=== PATIENT | female | born 1955 | race Caucasian/White ===

== ENCOUNTER 2016-10-19 12:24 | Inpatient (IN) | payer MEDICARE, OTHER ==
[2016-10-19] VITALS (10 sets, daily range): BP systolic 119–142; BP diastolic 55–84; PULSE 52–84; RESP 16–22; TEMP 98.3–99.5; O2SAT 92–98
[~2016-10-19] VITALS: Ht 167.6 cm; Wt 114.7 kg
[2016-10-19] MEDS ORDERED: SODIUM CHLORIDE 0.9% FLUSH 5 ML FLUSH IVF PRN (12:45)
[2016-10-19] MEDS ORDERED: methylPREDNISolone SOD SUCC 125 MG/2 ML VIAL IV ONE (12:45)
[2016-10-19] MEDS: RESP: ALBUTEROL 2.5 MG/IPRATROPIUM 0.5 MG NEB (SCH) INH ×4 (12:52→23:06)
--- NOTE | 2016-10-19 12:56 | PD ---
HPI Chief Complaint: Respiratory Symptoms Time Seen by Provider: 12:39 Travel History International Travel<30 days: No Contact w/Intl Traveler<30days: No Traveled to known affect area: No History of Present Illness HPI Patient is a 60-year-old female with history of COPD, hypertension, hyperlipidemia, presents to emergency room with complaints of shortness of breath, cough, congestion. Patient reports that since Friday (past 4 days) she isn't having fevers and chills, reports that she has been coughing and has been bringing up thick sputum as well as blood-tinged sputum. Patient does report that she is on Coumadin as she has history of "heart disease" and history of a pacemaker placement. Patient reports that she went to urgent care Center prior to coming to the emergency room and was told that she had a pneumonia, reports that she was told to go directly to the emergency room for evaluation. Patient reports that she was given a shot of antibiotics, patient unsure of the name of the antibiotic. Patient also reports that she has been wheezing, reports history of smoking in the past with history of COPD, reports that she was not given any neb treatments while in the urgent care center. Patient with no sick contacts, no recent travels. Patient reports that "I feel like crap." PFSH Past Medical History Hx Anticoagulant Therapy: Yes (COUMADIN) Diabetes: Yes (TYPE 2) Past Surgical History Cardiac Surgery: Yes (pacemaker) Pacemaker: Yes Social History Tobacco Use: No Allergies-Medications (Allergen,Severity, Reaction): Coded Allergies: Sulfa (Verified Allergy, Unknown, Rash, 10/19/16) Reported Meds & Prescriptions Reported Meds & Active Scripts Active Reported Duloxetine DR (Duloxetine HCl) 60 Mg Capdr 60 Mg PO DAILY Fish Oil ([place]-3 Fatty Acids) 1,200 Mg Cap Calcium + D3 (Calcium Carbonate-Cholecalciferol) 600-200 Mg-Unit Tab 1 Tab PO BID Lisinopril 2.5 Mg Tab 2.5 Mg PO DAILY Simvastatin 40 Mg Tab 40 Mg PO HS Glipizide 10 Mg Tab 10 Mg PO BIDAC Take 30 minutes before a meal Bupropion HCl 100 Mg Tab 100 Mg PO BID Carvedilol 6.25 Mg Tab 6.25 Mg PO BID Spironolactone 25 Mg Tab 12.5 Mg PO DAILY Warfarin 7.5 Mg Tab 7.5 Mg PO DAILY Omeprazole 20 Mg Tab 20 Mg PO DAILY Review of Systems General / Constitutional: Positive: Fever, Chills Eyes: No: Visual changes HENT: No: Headaches Cardiovascular: No: Chest Pain or Discomfort Respiratory: Positive: Cough, Shortness of Breath, Wheezing, Hemoptysis Gastrointestinal: No: Abdominal Pain Genitourinary: No: Dysuria Musculoskeletal: No: Pain Skin: No Rash Neurologic: No: Weakness Psychiatric: No: Depression Endocrine: No: Polydipsia Hematologic/Lymphatic: No: Easy Bruising Physical Exam Narrative GENERAL: No acute distress, nontoxic SKIN: Warm and dry. HEAD: Atraumatic. Normocephalic. EYES: Pupils equal and round. No scleral icterus. No injection or drainage. ENT: No nasal bleeding or discharge. Mucous membranes pink and moist. NECK: Trachea midline. No JVD. CARDIOVASCULAR: Regular rate and rhythm. No murmur appreciated. RESPIRATORY: No accessory muscle use. Patient with scattered wheezing bilaterally GASTROINTESTINAL: Abdomen soft, non-tender, nondistended. Hepatic and splenic margins not palpable. MUSCULOSKELETAL: No obvious deformities. No clubbing. No cyanosis. No edema. NEUROLOGICAL: Awake and alert. No obvious cranial nerve deficits. Motor grossly within normal limits. Normal speech. PSYCHIATRIC: Appropriate mood and affect; insight and judgment normal. Data Data Last Documented VS Vital Signs Date Time Temp Pulse Resp B/P Pulse Ox O2 Delivery O2 Flow Rate FiO2 10/19/16 13:13 97 10/19/16 12:55 21 10/19/16 12:31 99.0 60 16 119/55 Orders Electrocardiogram (10/19/16 12:44) Complete Blood Count With Diff (10/19/16 12:44) Comprehensive Metabolic Panel (10/19/16 12:44) Influenzae A/B Antigen (10/19/16 12:44) Urinalysis - C+S If Indicated (10/19/16 12:44) Blood Culture (10/19/16 12:44) Ecg Monitoring (10/19/16 12:44) Iv Access Insert/Monitor (10/19/16 12:44) Oximetry (10/19/16 12:44) Sodium Chloride 0.9% Flush (Ns Flush) (10/19/16 12:45) Albuterol-Ipratropium Neb (Duoneb Neb) (10/19/16 12:45) Methylprednisolone So Succ Inj (Solumedr (10/19/16 12:45) Chest, Single Ap (10/19/16 12:47) Prothrombin Time / Inr (Pt) (10/19/16 12:47) Act Partial Throm Time (Ptt) (10/19/16 12:47) Ct Pulmonary Angiogram (10/19/16 13:37) Azithromycin Inj (Zithromax Inj) (10/19/16 13:45) Albuterol Neb (Albuterol Neb) (10/19/16 15:15) Labs Laboratory Tests Test 10/19/16 10/19/16 12:50 13:50 White Blood Count 6.1 TH/MM3 Red Blood Count 3.80 MIL/MM3 Hemoglobin 11.3 GM/DL Hematocrit 34.1 % Mean Corpuscular Volume 89.6 FL Mean Corpuscular Hemoglobin 29.6 PG Mean Corpuscular Hemoglobin 33.1 % Concent Red Cell Distribution Width 12.8 % Platelet Count 182 TH/MM3 Mean Platelet Volume 7.3 FL Neutrophils (%) (Auto) 73.6 % Lymphocytes (%) (Auto) 16.2 % Monocytes (%) (Auto) 7.2 % Eosinophils (%) (Auto) 1.9 % Basophils (%) (Auto) 1.1 % Neutrophils # (Auto) 4.5 TH/MM3 Lymphocytes # (Auto) 1.0 TH/MM3 Monocytes # (Auto) 0.4 TH/MM3 Eosinophils # (Auto) 0.1 TH/MM3 Basophils # (Auto) 0.1 TH/MM3 CBC Comment DIFF FINAL Differential Comment Prothrombin Time 16.1 SEC Prothromb Time International 1.4 RATIO Ratio Activated Partial 35.2 SEC Thromboplast Time Sodium Level 138 MEQ/L Potassium Level 3.9 MEQ/L Chloride Level 101 MEQ/L Carbon Dioxide Level 27.7 MEQ/L Anion Gap 9 MEQ/L Blood Urea Nitrogen 14 MG/DL Creatinine 1.10 MG/DL Estimat Glomerular Filtration 51 ML/MIN Rate Random Glucose 102 MG/DL Calcium Level 8.9 MG/DL Total Bilirubin 0.7 MG/DL Aspartate Amino Transf 18 U/L (AST/SGOT) Alanine Aminotransferase 29 U/L (ALT/SGPT) Alkaline Phosphatase 63 U/L Total Protein 7.8 GM/DL Albumin 3.6 GM/DL Urine Collection Type CLEAN CATCH Urine Color YELLOW Urine Turbidity CLEAR Urine pH 6.5 Urine Specific [place] 1.021 Urine Protein TRACE mg/dL Urine Glucose (UA) NEG mg/dL Urine Ketones NEG mg/dL Urine Occult Blood NEG Urine Nitrite NEG Urine Bilirubin NEG Urine Leukocyte Esterase TRACE Urine WBC 0-2 /hpf Urine Squamous Epithelial 0-5 /hpf Cells Microscopic Urinalysis Comment CULT NOT INDICATED MDM Medical Decision Making Medical Screen Exam Complete: Yes Emergency Medical Condition: Yes Interpretation(s) EKG at 1304: Ventricular paced at 60bpm, qt/qtc: 494/494 Vital Signs Date Time Temp Pulse Resp B/P Pulse Ox O2 Delivery O2 Flow Rate FiO2 10/19/16 12:31 99.0 60 16 119/55 97 Differential Diagnosis Influenza, pneumonia, COPD exacerbation, PE, pneumothorax Narrative Course Patient is a 60-year-old female who presents to emergency room with complaints of increased cough, congestion and fever for the past 4 days. Patient reports that she went to an urgent care center today and was diagnosed with pneumonia, reports that she was given a shot of antibiotics and was told to go to the ER. call made to [facility] urgent care - pt was given 1gram of rocephin IM. Patient presents to emergency room with x-ray of chest from [facility]. I attempted to open disc and review xray and I was unable to pull up the xray of chest. Labs as well as x-ray chest ordered. BC ordered Patient is wheezing, will give neb treatments. patient did receive prednisone 60mg while in the urgent care today Patient with RLL infiltrate, patient has received 1 g of IM Rocephin, will give IV azithromycin. PE study ordered as patient is subtherapeutic with her INR, complaining of shortness of breath with coughing up blood - PE study ordered to evaluate for possible PE Patient with multilobar pneumonia, patient with increased consolidation throughout right upper, right middle and right lower lobes, is also patchy consolidations to the left lingula as well as to the left lower lobe Given the extent of her pneumonia, will admit to medicine service patient has been pancultured at this time. Patient did receive a dose of IM to Rocephin at urgent care yesterday, she received a dose of IV azithromycin here Wheezing has improved after multiple neb treatments as well as IV Solu-Medrol Physician Communication Physician Communication case reviewed with Dr Carranza who accepts pt to service Diagnosis Primary Impression: multilobar pneumonia Additional Impressions: COPD with exacerbation Subtherapeutic anticoagulation Admitting Information Admitting Physician Requests: Admit Shannan Arechiga DO Oct 19, 2016 12:56
[2016-10-19 13:06] LABS: AUTOMATED NEUTROPHIL # 4.5 TH/MM3 (1.8-7.7); BASOPHIL # 0.1 TH/MM3 (0-0.2); BASOPHIL % 1.1 % (0.0-2.0); EOSINOPHIL # 0.1 TH/MM3 (0-0.4); EOSINOPHIL % 1.9 % (0.0-4.0); HEMATOCRIT 34.1 % (35.0-46.0); HEMO FLAGS DIFF FINAL; LYMPH % 16.2 % (9.0-44.0); MEAN CELL VOLUME 89.6 FL (80.0-100.0); MEAN CORPUSCULAR HEMOGLOBIN 29.6 PG (27.0-34.0); MEAN CORPUSCULAR HGB CONC 33.1 % (32.0-36.0); MONO % 7.2 % (0.0-8.0); NEUT % 73.6 % (16.0-70.0); PLATELET COUNT 182 TH/MM3 (150-450); RED CELL DISTRIBUTION WIDTH 12.8 % (11.6-17.2); WHITE BLOOD COUNT 6.1 TH/MM3 (4.0-11.0)
[2016-10-19] MEDS ORDERED: OMEP20TA PO (13:08)
[2016-10-19] MEDS ORDERED: SPIR25TA PO (13:08)
[2016-10-19] MEDS ORDERED: WARF-21 PO (13:08)
[2016-10-19] MEDS ORDERED: FISH120014 (13:08)
[2016-10-19] MEDS ORDERED: DULO1CAP3 PO (13:08)
[2016-10-19] MEDS ORDERED: SIMV40TA PO (13:08)
[2016-10-19] MEDS ORDERED: LISI2.5T3 PO (13:08)
[2016-10-19] MEDS ORDERED: GLIP10TA6 PO (13:08)
[2016-10-19] MEDS ORDERED: CARV6.252 PO (13:08)
[2016-10-19] MEDS ORDERED: BUPR100T4 PO (13:08)
[2016-10-19] MEDS ORDERED: CALC600T10 PO (13:08)
[2016-10-19 13:28] LABS: CHLORIDE 101 MEQ/L (98-107); POTASSIUM 3.9 MEQ/L (3.5-5.1); SODIUM (NA) 138 MEQ/L (136-145)
--- NOTE | 2016-10-19 13:28 | RADHPO ---
EXAM DATE/TIME: 10/19/2016 13:09 [facility] COMPARISON: No previous studies available for comparison. INDICATIONS : Shortness of breath. Coughing up blood for two days. MEDICAL HISTORY : Carcinoma, breast. A-fib. SURGICAL HISTORY : Pacemaker. ENCOUNTER: Initial ACUITY: 2 days PAIN SCORE: 0/10 LOCATION: Bilateral chest FINDINGS: There is a multilead pacing/AICD device in place from the left subclavian approach. The heart size i s mildly enlarged. There is increased density at the right base. The left lung is grossly clear. N o effusion is seen. CONCLUSION: 1. Right lower lobe consolidation or atelectasis. 2. Cardiomegaly. The patient has a multilead pacing device in place. Austin Florez MD on October 19, 2016 at 13:23 Board Certified Radiologist. This report was verified electronically.
[2016-10-19 13:31] LABS: ANION GAP 9 MEQ/L (5-15); BICARBONATE 27.7 MEQ/L (21.0-32.0)
[2016-10-19 13:32] LABS: APTT (PATIENT) 35.2 SEC (24.3-30.1); BLOOD UREA NITROGEN 14 MG/DL (7-18); INTERNATIONAL NORMALIZED RATIO 1.4 RATIO; PROTHROMBIN TIME - PATIENT 16.1 SEC (9.8-11.6)
[2016-10-19 13:35] LABS: ALT (GPT) 29 U/L (10-53); AST (GOT) 18 U/L (15-37); GLOMERULAR FILTRATION RATE 51 ML/MIN (>89)
[2016-10-19 13:36] LABS: TOTAL BILIRUBIN ADULT 0.7 MG/DL (0.2-1.0)
[2016-10-19 13:38] LABS: ALKALINE PHOSPHATASE 63 U/L (45-117)
[2016-10-19] MEDS ORDERED: AZITHROMYCIN INJ 500 MG in SODIUM CHLOR 0.9% 250 ML INJ 250 ML IV ONE (13:45)
[2016-10-19 14:14] LABS: BLOOD, URINE NEG (NEG); GLUCOSE,URINE NEG (NEG); KETONE, URINE NEG (NEG); NITRITE,URINE NEG (NEG); PH, URINE 6.5 (5.0-8.5)
[2016-10-19 14:37] LABS: COMMENT (UR) CULT NOT INDICATED; CULTURE IF INDICATED CULT NOT INDICATED; METHOD OF COLLECTION CLEAN CATCH; SQUAMOUS EPITHELIAL CELL URINE 0-5 /hpf (0-5); URINE COLOR YELLOW (YELLW/STRAW); WBC, URINE 0-2 /hpf (0-5)
--- NOTE | 2016-10-19 15:14 | RADHPO ---
EXAM DATE/TIME: 10/19/2016 14:16 [facility] COMPARISON: No previous studies available for comparison. INDICATIONS : Short of breath, coughing up blood. IV CONTRAST: 70 cc Omnipaque 350 (iohexol) IV RADIATION DOSE: 21.02 CTDIvol (mGy) MEDICAL HISTORY : Cardiovascular disease. Diabetes mellitus type 2. SURGICAL HISTORY : Pacemaker. ENCOUNTER: Initial ACUITY: 1 day PAIN SCALE: 5/10 LOCATION: Chest TECHNIQUE: Volumetric scanning of the chest was performed using a pulmonary embolism protocol MIP images were reconstructed. Using automated exposure control and adjustment of the mA and/or kV acco rding to patient size, radiation dose was kept as low as reasonably achievable to obtain optimal diag nostic quality images. FINDINGS: No pulmonary embolus is identified. There are patchy areas of consolidation seen in the inferior rig ht upper lobe, throughout the right lower lobe and to a lesser degree right middle lobe. There is so me patchy consolidation at the inferolateral left lingula and at the medial upper left lower lobe. T here are lymph nodes seen in the mediastinum, in the right paratracheal, pretracheal, precarinal and subcarinal regions. The patient has a pacemaker in place. No effusion is seen. There is some event ration of the medial left hemidiaphragm. CONCLUSION: 1. No pulmonary embolus. 2. Areas of consolidation which are somewhat ground glass throughout the lungs as described above. This could represent widespread processes such as edema or infection or inflammatory change, includin g inhalational diseases. The patient does have adenopathy. Clinical correlation and close clinical followup would be recommended. Austin Florez MD on October 19, 2016 at 15:02 Board Certified Radiologist. This report was verified electronically.
[2016-10-19] MEDS ORDERED: RESP: ALBUTEROL 2.5 MG/3 ML NEB (SCH) NEB ONE (15:15)
[2016-10-19] MEDS ORDERED: RESP: ALBUTEROL 2.5 MG/IPRATROPIUM 0.5 MG NEB (PRN) INH (16:15)
[2016-10-19] MEDS ORDERED: DEXTROSE 50% IN WATER 50 ML VIAL(D50) IV PUSH PRN (16:15)
[2016-10-19] MEDS ORDERED: ONDANSETRON HCL 4 MG/2 ML VIAL IVP PRN (16:15)
[2016-10-19] MEDS ORDERED: GLUCAGON 1 MG/ML VIAL OTHER PRN (16:15)
[2016-10-19] MEDS ORDERED: NALOXONE HCL 0.4 MG/ML AMP IV PRN (16:15)
[2016-10-19] MEDS ORDERED: SODIUM CHLORIDE 0.9% FLUSH 5 ML FLUSH FLUSH PRN (16:15)
[2016-10-19] MEDS ORDERED: ACETAMINOPHEN 325 MG TAB PO PRN (16:15)
[2016-10-19] MEDS ORDERED: MAGNESIUM HYDROXIDE SUSP 30 ML CUP PO PRN (16:15)
[2016-10-19] MEDS: SODIUM CHLOR 0.9% 1000 ML INJ 1,000 ML IV SCH (17:00)
--- NOTE | 2016-10-19 17:11 | HHI.HP ---
HPI Service [facility] Hospitalists Primary Care Physician Non-Staff Admission Diagnosis Multilobar pneumonia, COPD exacerbation Diagnoses: Chief Complaint: Chest heaviness Cough SOB hemoptysis Travel History International Travel<30 Days: No Contact w/Intl Traveler <30 Da: No Traveled to Known Affected Are: No History of Present Illness This is a 60-year-old female with multiple medical problems including atrial fibrillation, previous pacemaker placement, COPD, diabetes, hypertension and history of breast cancer status post radiation who presents to [facility] ED with complaints of chest heaviness, cough and congestion 4 days. Patient reports she's been in her usual state of health until 4 days ago when she developed chest heaviness followed by cough with thick sputum production, hemoptysis and SOB. She reports associated unrecorded fever and chills. She denies any muscle aches or pains. She denies any abdominal pain, nausea or vomiting. Patient went to urgent care earlier today and was told she has pneumonia. She was treated with a cephalosporin and albuterol treatment and was then sent to the ED due to hemoptysis. She denies any ill contacts or recent travel. She denies any previous history of tuberculosis. In the ED, patient's white count is normal with 73 polys. She is afebrile. Chest x-ray shows cardiomegaly and right lower lobe consolidation. CTA revealed no evidence of PE but showed patchy areas of consolidation in all lobes of the right lung and some patchy consolidation noted in the left lobe as well. Review of Systems Constitutional: COMPLAINS OF: Fever (feeling feverish, unrecorded temperature) , Chills (x 4 days) Endocrine: DENIES: Polydipsia, Polyuria Eyes: DENIES: Blurred vision, Double Vision Ears, nose, mouth, throat: DENIES: Throat pain, Hoarseness, Ear Pain, Running Nose Respiratory: COMPLAINS OF: Cough (4 days with bloody sputum production), Wheezing, Hemoptysis, Sputum production (bloody), Shortness of breath (4 days) Cardiovascular: DENIES: Chest pain, Palpitations, Syncope, Lower Extremity Edema Gastrointestinal: DENIES: Abdominal pain, Black stools, Bloody stools, Diarrhea , Nausea, Vomiting, Difficulty Swallowing Genitourinary: DENIES: Hematuria, Dysuria Musculoskeletal: DENIES: Joint Swelling, Back pain, Neck pain Integumentary: DENIES: Pruritus, Rash Hematologic/lymphatic: DENIES: Bruising Immunologic/allergic: DENIES: Urticaria Neurologic: COMPLAINS OF: Headache (intermittant over the past 4 days, now resolved), DENIES: Localized weakness, Paresthesias, Speech Problems Psychiatric: COMPLAINS OF: Depression (chronic, unchanged), DENIES: Anxiety, Confusion Past Family Social History Past Medical History Atrial fibrillation Diabetes COPD Hypertension Dyslipidemia Depression CAD H/O valve surgery/?replacement as a child Previous pacemaker with subsequent revision/replacement due to radiation H/O CHF History of breast cancer, status post radiation and surgical resection GERD Past Surgical History H/O valve surgery/?replacement as a child Previous pacemaker with subsequent revision/replacement due to radiation History of breast cancer, status post radiation and surgical resection Reported Medications Duloxetine DR (Duloxetine HCl) 60 Mg Capdr 60 Mg PO DAILY Fish Oil ([place]-3 Fatty Acids) 1,200 Mg Cap Calcium + D3 (Calcium Carbonate-Cholecalciferol) 600-200 Mg-Unit Tab 1 Tab PO BID Lisinopril 2.5 Mg Tab 2.5 Mg PO DAILY Simvastatin 40 Mg Tab 40 Mg PO HS Glipizide 10 Mg Tab 10 Mg PO BIDAC Take 30 minutes before a meal Bupropion HCl 100 Mg Tab 100 Mg PO BID Carvedilol 6.25 Mg Tab 6.25 Mg PO BID Spironolactone 25 Mg Tab 12.5 Mg PO DAILY Warfarin 7.5 Mg Tab 7.5 Mg PO DAILY Omeprazole 20 Mg Tab 20 Mg PO DAILY Allergies: Coded Allergies: Sulfa (Verified Allergy, Unknown, Rash, 10/19/16) Active Ordered Medications Current Medications Medications (Trade) Dose Ordered Sig/Bob Route Start Time Stop Time Status Last Admin (NS Flush) 2 ml UNSCH PRN IVF 10/19/16 12:45 Family History Mother and father were killed 4 years ago in a car accident Patient has one sister who is healthy Social History Patient denies any current tobacco use but has a history of smoking in the past She denies any alcohol consumption or illicit drug use 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 A&Ox3. SKIN: Warm and dry. No rashes or lesions noted. HEAD: Atraumatic. Normocephalic. No temporal or scalp tenderness. EYES: Pupils equal round and reactive. Extraocular motions intact. No scleral icterus. No injection or drainage. ENT: Nose without bleeding, purulent drainage or septal hematoma. Throat without erythema, tonsillar hypertrophy or exudate. Uvula midline. Airway patent. NECK: Trachea midline. No lymphadenopathy. Supple, nontender, no meningeal signs. CARDIOVASCULAR: Regular rate and rhythm without murmurs, gallops, or rubs. RESPIRATORY: Decreased BS throughout with coarse BS in all lung bear. Rales. GASTROINTESTINAL: Abdomen soft, non-tender, nondistended. No hepato-splenomegaly , or palpable masses. No guarding. MUSCULOSKELETAL: Extremities without clubbing, cyanosis, or edema. No joint tenderness, effusion, or edema noted. No calf tenderness. Negative Homans sign bilaterally. NEUROLOGICAL: Awake and alert. Cranial nerves II through XII intact. Motor and sensory grossly within normal limits. Five out of 5 muscle strength in all muscle groups. Normal speech. Laboratory Laboratory Tests Test 10/19/16 10/19/16 12:50 13:50 White Blood Count 6.1 Red Blood Count 3.80 Hemoglobin 11.3 Hematocrit 34.1 Mean Corpuscular Volume 89.6 Mean Corpuscular Hemoglobin 29.6 Mean Corpuscular Hemoglobin 33.1 Concent Red Cell Distribution Width 12.8 Platelet Count 182 Mean Platelet Volume 7.3 Neutrophils (%) (Auto) 73.6 Lymphocytes (%) (Auto) 16.2 Monocytes (%) (Auto) 7.2 Eosinophils (%) (Auto) 1.9 Basophils (%) (Auto) 1.1 Neutrophils # (Auto) 4.5 Lymphocytes # (Auto) 1.0 Monocytes # (Auto) 0.4 Eosinophils # (Auto) 0.1 Basophils # (Auto) 0.1 CBC Comment DIFF FINAL Differential Comment Prothrombin Time 16.1 Prothromb Time International 1.4 Ratio Activated Partial 35.2 Thromboplast Time Sodium Level 138 Potassium Level 3.9 Chloride Level 101 Carbon Dioxide Level 27.7 Anion Gap 9 Blood Urea Nitrogen 14 Creatinine 1.10 Estimat Glomerular Filtration 51 Rate Random Glucose 102 Calcium Level 8.9 Total Bilirubin 0.7 Aspartate Amino Transf 18 (AST/SGOT) Alanine Aminotransferase 29 (ALT/SGPT) Alkaline Phosphatase 63 Total Protein 7.8 Albumin 3.6 Urine Collection Type CLEAN CATCH Urine Color YELLOW Urine Turbidity CLEAR Urine pH 6.5 Urine Specific [place] 1.021 Urine Protein TRACE Urine Glucose (UA) NEG Urine Ketones NEG Urine Occult Blood NEG Urine Nitrite NEG Urine Bilirubin NEG Urine Leukocyte Esterase TRACE Urine WBC 0-2 Urine Squamous Epithelial 0-5 Cells Microscopic Urinalysis Comment CULT NOT INDICATED Date/Time Procedure Status Source Growth 10/19/16 13:40 Aerobic Blood Culture Received Blood Peripheral Pending 10/19/16 13:40 Anaerobic Blood Culture Received Blood Peripheral Pending 10/19/16 13:00 Influenza Types A,B Antigen (JULIETH) - Final Complete Nasal Washing NEGATIVE FOR FLU A AND B ANTIGEN.... Result Diagram: 10/19/16 1250 10/19/16 1250 Assessment and Plan Assessment and Plan 60-year-old female with multiple medical problems including atrial fibrillation , previous pacemaker placement, COPD, diabetes, hypertension and history of breast cancer status post radiation who presents to [facility] ED with complaints of chest heaviness, cough and congestion 4 days. Multilobar pneumonia, Community-acquired in a patient with previous history of COPD, childhood valvular surgery with ?replacement and breast cancer s/p radiation with complaints of chest heaviness, hemoptysis and shortness of breath - Patient to be admitted with continuous cardiac monitoring - CT of the chest personally interpreted showing multi lobar pneumonia - IV antibiotics to include IV Rocephin and azithromycin - DuoNeb scheduled - Consult pulmonology - Obtain echocardiogram - Sputum culture - TB screening - supplemental oxygen - supportive measures - Follow up on blood culture results Atrial fibrillation - rate controlled - Hold warfarin for now due to hemoptysis - telemetry DONN - Mild - IV fluid - avoid nephrotoxic agents - Will continue on home ACEI at present but will hold if creatinine function worsens - A.m. labs to monitor trend Hypertension - Well-controlled at present - Resume home meds - Monitor BP Diabetes - hold home dose of glipizide until patient's appetite improves - Accuchecks - level 1 ISS Dyslipidemia - resume home simvastatin dose Depression - resume home antidepressant meds GERD - resume home PPI DVT prophylaxis - Heparin sq TID Written by Deepali Godoy PA-C acting as scribe for Dr. Carranza on 10/19/16 at 17:07. Physician Certification 2 Midnight Certification Type: Admission for Inpatient Services Order for Inpatient Services The services are ordered in accordance with Medicare regulations or non- Medicare payer requirements, as applicable. In the case of services not specified as inpatient-only, they are appropriately provided as inpatient services in accordance with the 2-midnight benchmark. Estimated LOS (days): 3 3 days is the estimated time the patient will need to remain in the hospital, assuming treatment plan goals are met and no additional complications. Post-Hospital Plan: Not yet determined Deepali Godoy Oct 19, 2016 17:11
[2016-10-19] MEDS ORDERED: PILL SPLITTER OTHER PRN (17:30)
[2016-10-19] MEDS: HEPARIN SODIUM - SQ 10,000 UNITS/ML VIAL SQ SCH ×2 (17:43→22:24)
[2016-10-19] MEDS: DOCUSATE SODIUM 100 MG CAP PO SCH ×2 (17:43→22:25)
[2016-10-19 17:58] LABS: BLOOD GAS BASE EXCESS -0.5 mmol/L (-2-2); BLOOD GAS CARBOXYHEMOGLOBIN 1.9 % (0-4); BLOOD GAS HCO3 23 mmol/L (22-26); BLOOD GAS O2 HGB SATURATION 85 % (90-100); BLOOD GAS OXYGEN CONTENT 12.8 Vol % (12.0-20.0); BLOOD GAS PCO2 34 mmHG (38-42); BLOOD GAS PO2 57 mmHG (61-120); BLOOD GAS TOTAL HGB 10.6 G/DL (12.0-16.0); CRITICAL VALUE YES; DRAW SITE RT RADIAL; FIO2 21 %; NUMBER OF ARTERIAL PUNCTURES 1; OXYGEN DEVICE ROOM AIR; TEMP CORR TO 98.6; ULNAR PULSE PRESENT
[2016-10-19 17:59] LABS: STAT NO
[2016-10-19] MEDS: cefTRIAXone INJ 2,000 MG in SODIUM CHLORIDE 0.9% INJ 100 ML IV SCH (18:00)
[2016-10-19] MEDS ORDERED: IOHEXOL 350 MG/ML 10 ML VIAL (for RAD DIAG) IV ONE (18:47)
[2016-10-19] MEDS: SODIUM CHLORIDE 0.9% FLUSH 5 ML FLUSH FLUSH SCH (21:00)
[2016-10-19] MEDS: buPROPion HCL 100 MG TAB PO SCH (21:00)
[2016-10-19 21:24] LABS: M. TUBERCULOSIS PCR NOT DETECTED (NOT DETECT)
[2016-10-19] MEDS: INSULIN ASPART SUPPLEMENTAL SCALE SQ SCH (22:25)
[2016-10-19] MEDS: CARVEDILOL 6.25 MG TAB PO SCH (22:25)
[2016-10-19] MEDS: PRAVASTATIN SOD 80 MG TAB PO SCH (22:25)
[2016-10-19] MEDS: CALCIUM/VITAMIN D 250 MG/125 U TAB PO SCH (22:25)
[2016-10-19] MEDS: methylPREDNISolone SOD SUCC 125 MG/2 ML VIAL IV PUSH SCH (22:39)
[2016-10-20] VITALS (11 sets, daily range): BP systolic 134–154; BP diastolic 81–95; PULSE 59–60; RESP 18–20; TEMP 96.2–98.2; O2SAT 89–100
[2016-10-20] MEDS: RESP: ALBUTEROL 2.5 MG/IPRATROPIUM 0.5 MG NEB (SCH) INH ×5 (03:51→21:19)
[2016-10-20] MEDS: HEPARIN SODIUM - SQ 10,000 UNITS/ML VIAL SQ SCH ×3 (06:18→21:02)
[2016-10-20] MEDS: INSULIN ASPART SUPPLEMENTAL SCALE SQ SCH ×4 (06:19→21:03)
[2016-10-20] MEDS: SODIUM CHLOR 0.9% 1000 ML INJ 1,000 ML IV SCH ×2 (06:19→17:25)
[2016-10-20 08:46] LABS: AUTOMATED NEUTROPHIL # 4.8 TH/MM3 (1.8-7.7); BASOPHIL % 0.6 % (0.0-2.0); EOSINOPHIL % 0.1 % (0.0-4.0); HEMATOCRIT 34.4 % (35.0-46.0); HEMO FLAGS DIFF FINAL; LYMPH % 13.9 % (9.0-44.0); LYMPHOCYTE # 0.8 TH/MM3 (1.0-4.8); MEAN CELL VOLUME 90.5 FL (80.0-100.0); MEAN CORPUSCULAR HEMOGLOBIN 29.5 PG (27.0-34.0); MEAN CORPUSCULAR HGB CONC 32.5 % (32.0-36.0); NEUT % 82.4 % (16.0-70.0); PLATELET COUNT 177 TH/MM3 (150-450); RED BLOOD COUNT 3.81 MIL/MM3 (4.00-5.30); RED CELL DISTRIBUTION WIDTH 12.5 % (11.6-17.2); WHITE BLOOD COUNT 5.8 TH/MM3 (4.0-11.0)
[2016-10-20] MEDS: methylPREDNISolone SOD SUCC 125 MG/2 ML VIAL IV PUSH SCH ×2 (09:00→12:00)
[2016-10-20] MEDS: SODIUM CHLORIDE 0.9% FLUSH 5 ML FLUSH FLUSH SCH ×2 (09:00→21:00)
[2016-10-20] MEDS: LISINOPRIL 5 MG TAB PO SCH (09:00)
[2016-10-20] MEDS: CALCIUM/VITAMIN D 250 MG/125 U TAB PO SCH ×2 (09:45→21:01)
[2016-10-20] MEDS: CARVEDILOL 6.25 MG TAB PO SCH ×2 (09:46→21:02)
[2016-10-20] MEDS: PANTOPRAZOLE SOD 20 MG DELAYED RELEASE TAB PO SCH (09:46)
[2016-10-20] MEDS: buPROPion HCL 100 MG TAB PO SCH ×2 (09:46→21:01)
[2016-10-20] MEDS: SPIRONOLACTONE 25 MG TAB PO SCH (09:47)
[2016-10-20] MEDS: DOCUSATE SODIUM 100 MG CAP PO SCH ×2 (09:47→21:01)
[2016-10-20] MEDS: DULoxetine HCl DR 60 MG CAP PO SCH (09:48)
[2016-10-20 10:09] LABS: BICARBONATE 25.1 MEQ/L (21.0-32.0)
[2016-10-20] MEDS ORDERED: AZITHROMYCIN INJ 500 MG in SODIUM CHLOR 0.9% 250 ML INJ 250 ML IV SCH (14:00)
--- NOTE | 2016-10-20 15:35 | EC ---
Study Study Date:10/20/2016 STUDY CONCLUSIONS SUMMARY - Left ventricle: The cavity size was normal. Wall thickness was normal. Systolic function was normal. The estimated ejection fraction was in the range of 50% to 55%. Wall motion was normal; there were no regional wall motion abnormalities. - Aortic valve: Trace regurgitation. - Mitral valve: Mild to moderate regurgitation directed posteriorly. - Left atrium: The atrium was mildly dilated. - Right atrium: Linear opacity seen is likely just pacer wire with attendant artifact, but could consider LES if clinically indicated. The atrium was mildly dilated. - Tricuspid valve: Mild regurgitation. If LV function is below 40, please consider prescribing an ACEI or ARB or document rationale for non-use. PROCEDURE DATA STUDY STATUS: Elective. Procedure: Transthoracic echocardiography. Image quality was good. Scanning was performed from the parasternal, apical, and subcostal acoustic windows. Study completion: The patient tolerated the procedure well. Transthoracic echocardiography. M-mode, complete 2D, complete spectral Doppler, and color Doppler. Patient status: Inpatient. CARDIAC ANATOMY LEFT VENTRICLE: The cavity size was normal. Wall thickness was normal. Systolic function was normal. The estimated ejection fraction was in the range of 50% to 55%. Wall motion was normal; there were no regional wall motion abnormalities. AORTIC VALVE: Trileaflet; normal thickness leaflets. Doppler: Transvalvular velocity was within the normal range. There was no stenosis. Trace regurgitation. Peak gradient: 11mm Hg (S). AORTA: Aortic root: The aortic root was normal in size. MITRAL VALVE: Mildly thickened leaflets, . Doppler: Transvalvular velocity was within the normal range. There was no evidence for stenosis. Mild to moderate regurgitation directed posteriorly. Valve area by pressure half-time: 3.19cm^2. Mean gradient: 5mm Hg (D). Peak gradient: 22mm Hg (D). LEFT ATRIUM: The atrium was mildly dilated. RIGHT VENTRICLE: The cavity size was normal. Wall thickness was normal. Pacer wire or catheter noted in right ventricle. PULMONIC VALVE: Doppler: Transvalvular velocity was within the normal range. There was no evidence for stenosis. Trace regurgitation. TRICUSPID VALVE: Structurally normal valve. Doppler: Transvalvular velocity was within the normal range. Mild regurgitation. PULMONARY ARTERY: The main pulmonary artery was normal-sized. Systolic pressure was within the normal range. RIGHT ATRIUM: Linear opacity seen is likely just pacer wire with attendant artifact, but could consider LES if clinically indicated. The atrium was mildly dilated. Pacer wire or catheter noted in right atrium. PERICARDIUM: There was no pericardial effusion. SYSTEMIC VEINS: Inferior vena cava: The vessel was normal in size. BASIC MEASUREMENTS ADULT Normal Left ventricle LV internal dimension, ED, chordal level, 51.2 mm 43-52 PLAX LV internal dimension, ES, chordal level, *38.2 mm 23-38 PLAX Fractional shortening, chordal level, PLAX *25 % >29 LV posterior wall thickness, ED 8.12 mm IVS/LVPW ratio, ED 1.12 <1.3 Ventricular septum Septal thickness, ED 9.08 mm Aortic valve Leaflet separation 21 mm 15-26 Left atrium Anterior-posterior dimension 44 mm Right ventricle RV internal dimension, ED, PLAX 28.4 mm 19-38 BASIC MEASUREMENTS ADULT Normal Aortic valve Leaflet separation 21 mm 15-26 Aorta Root diameter, ED 32 mm 20-37 DOPPLER MEASUREMENTS ADULT Normal Aortic valve Peak velocity, S 168 cm/s VTI, S 59.7 cm Peak gradient, S 11 mm Hg Mitral valve Peak E-wave velocity 128 cm/s Peak A-wave velocity 61.4 cm/s Mean velocity, D 92.3 cm/s Pressure half-time 69 ms Mean gradient, D 5 mm Hg Peak gradient, D 22 mm Hg Peak E/A ratio 2.1 Valve area, pressure half-time 3.19 cm^2 Maximal regurgitant velocity 510 cm/s Tricuspid valve Regurgitant peak velocity 266 cm/s Peak RV-RA gradient, S 28 mm Hg Maximal regurgitant velocity 266 cm/s LEGEND: Mean values are shown as u=mean value. Asterisk (*) larson values outside specified normal range. Prepared and signed by Andriy Morrow [id number]
--- NOTE | 2016-10-20 16:37 | HHI.PR ---
Subjective Remarks Follow-up on patient with multi lobar pneumonia. Patient feeling a little better today. Shortness of breath improved but still having difficulty with breathing. No longer coughing up up blood-tinged sputum but still with significant production of thick sputum. Mycoplasma test negative. Patient with episodes of bradycardia. As denoted in patient's history, she has a pacemaker as well as a defibrillator. Patient reports her pacemaker is always on. She denies any complaints of chest pain or dizziness and her shortness of breath is actually improved since her admission on antibiotic. Objective Vitals Vital Signs Date Time Temp Pulse Resp B/P Pulse Ox O2 Delivery O2 Flow Rate FiO2 10/20/16 12:00 96.3 60 20 152/81 89 10/20/16 11:36 93 21 10/20/16 09:48 91 21 10/20/16 08:32 96 Nasal Cannula 2.00 10/20/16 08:00 97.7 59 20 148/95 100 10/20/16 04:00 98.2 60 18 139/81 96 10/20/16 00:00 96.2 60 18 134/81 96 10/19/16 23:06 98 Nasal Cannula 2.00 10/19/16 21:56 60 10/19/16 20:15 98.3 59 18 121/60 98 10/19/16 19:57 95 Nasal Cannula 2.00 10/19/16 19:00 60 20 142/59 93 Nasal Cannula 2 10/19/16 17:05 84 20 129/84 92 Nasal Cannula 2 I/O 10/19/16 10/19/16 10/19/16 10/20/16 10/20/16 10/20/16 07:00 15:00 23:00 07:00 15:00 23:00 Intake Total 360 ml 840 ml Balance 360 ml 840 ml Intake Oral 360 ml 840 ml # Voids 5 2 # Bowel Movements 0 Result Diagram: 10/20/16 0809 10/20/16 0809 Imaging Last [address] Angiography 10/19/16 8617 Signed Impressions: Service Date/Time: Wednesday, October 19, 2016 14:16 - CONCLUSION: 1. No pulmonary embolus. 2. Areas of consolidation which are somewhat ground glass throughout the lungs as described above. This could represent widespread processes such as edema or infection or inflammatory change, including inhalational diseases. The patient does have adenopathy. Clinical correlation and close clinical followup would be recommended. Austin Florez MD Chest X-Ray 10/19/16 1247 Signed Impressions: Service Date/Time: Wednesday, October 19, 2016 13:09 - CONCLUSION: 1. Right lower lobe consolidation or atelectasis. 2. Cardiomegaly. The patient has a multilead pacing device in place. Austin Florez MD Objective Remarks GENERAL: Well-nourished, well-developed patient in NAD. Mild respiratory distress noted. SKIN: Warm and dry. ENT: Mucous membranes pink and moist. CARDIOVASCULAR: Irregularly irregular. S1, S2 noted. No murmur appreciated. RESPIRATORY: Diminished breath sounds but with better air movement noted than yesterday. Coarse breath sounds appreciated on the right GASTROINTESTINAL: Abdomen soft, non-tender, nondistended. Normoactive bowel sounds x4. MUSCULOSKELETAL: No obvious deformities. Extremities without clubbing, cyanosis , or edema. NEUROLOGICAL: Awake and alert. No obvious cranial nerve deficits. Motor grossly within normal limits. 5/5 muscle strength in bilateral upper and lower extremities. Normal speech. PSYCHIATRIC: Appropriate mood and affect; insight and judgment normal. Medications and IVs Current Medications Medications (Trade) Dose Ordered Sig/Bob Route Start Time Stop Time Status Last Admin (NS Flush) 2 ml UNSCH PRN FLUSH 10/19/16 16:15 (NS Flush) 2 ml BID FLUSH 10/19/16 21:00 (Tylenol) 650 mg Q4H PRN PO 10/19/16 16:15 (Zofran Inj) 4 mg Q6H PRN IVP 10/19/16 16:15 (Colace) 100 mg Q12HR PO 10/19/16 16:30 10/20/16 09:47 (Milk Of Magnesia Liq) 30 ml Q12H PRN PO 10/19/16 16:15 (Heparin Inj) 5,000 units Q8HR SQ 10/19/16 16:15 10/20/16 14:05 Naloxone HCl 0.4 mg 0.4 mg UNSCH PRN IV 10/19/16 16:15 (Rocephin Inj/NS Inj) 100 ml @ 200 mls/hr Q24H IV 10/19/16 18:00 10/19/16 18:00 (D50w (Vial) Inj) 25 ml UNSCH PRN IV PUSH 10/19/16 16:15 Glucagon 1 mg 1 mg UNSCH PRN OTHER 10/19/16 16:15 (NS 1000 ml Inj) 1,000 ml @ 75 mls/hr [id number] IV 10/19/16 17:00 10/20/16 06:19 (Wellbutrin) 100 mg BID PO 10/19/16 21:00 10/20/16 09:46 (Coreg) 6.25 mg BID PO 10/19/16 21:00 10/20/16 09:46 (Cymbalta Dr) 60 mg DAILY PO 10/20/16 09:00 10/20/16 09:48 (Prinivil) 2.5 mg DAILY PO 10/20/16 09:00 (Protonix) 20 mg DAILY PO 10/20/16 09:00 10/20/16 09:46 (Aldactone) 12.5 mg DAILY PO 10/20/16 09:00 10/20/16 09:47 (Oscal-D 250-125) 500 mg BID PO 10/19/16 21:00 10/20/16 09:45 (Pravachol) 80 mg HS PO 10/19/16 21:00 10/19/16 22:25 (Pill Splitter) 1 ea UNSCH PRN OTHER 10/19/16 17:30 Methylprednisolone Sodium Succinate 60 mg 60 mg Q12H IV PUSH 10/20/16 12:00 10/20/16 12:00 (Vibramycin Inj/ NS Inj) 100 ml @ 100 mls/hr Q12H IV 10/20/16 16:00 A/P Assessment and Plan 60-year-old female with multiple medical problems including atrial fibrillation , previous pacemaker placement, COPD, diabetes, hypertension and history of breast cancer status post radiation who presents to [facility] [address] ED with complaints of chest heaviness, cough and congestion 4 days. Multilobar pneumonia, Community-acquired in a patient with previous history of COPD, childhood valvular surgery with ?replacement and breast cancer s/p radiation with complaints of chest heaviness, hemoptysis and shortness of breath - Slight improvement - IV antibiotics to include IV Rocephin and azithromycin, DC IV azithromycin due to QT prolongation. Begin doxycycline IV. - DuoNeb scheduled - Consult pulmonology pending - Echocardiogram completed revealing EF 50-55%, normal wall motion - Sputum culture shows heavy growth of normal respiratory sanjay - TB screening - none detected - supplemental oxygen - blood culture results show no growth to date - Legionella and streptococcus both negative - ABG showed hypoxemia and patient started on IV steroid Atrial fibrillation - rate controlled - Resume warfarin - Recheck PT/INR Bradycardia - Asymptomatic - No evidence of pacemaker spikes on EKG - Continue with telemetry - Dr. Carranza to contact EP physician tomorrow DONN - Resolved Hypertension - controlled at present - home meds - Monitor BP Diabetes - Resume glipizide - Accuchecks - level 1 ISS Dyslipidemia - Continue home simvastatin dose Depression - Continue home antidepressant meds GERD - Continue home PPI DVT prophylaxis - Heparin sq TID Written by Deepali Godoy PA-C acting as scribe for Dr. Carranza on 10/20/16 at 15:17. Attending Statement The exam, history, and the medical decision-making described in the above note were completed with my assistance as the dictating practitioner. I attest that I had a [id number] encounter with the patient on the same day, and personally performed all of the history, exam, or medical decision making. I reviewed and agree with the plan. Patient's hemoptysis improved. Blood pressure somewhat elevated due to steroids likely. Some issues of bradycardia. And antibiotics haven't changed. Care plan discussed with patient and Stephanie RN. Deepali Godoy Oct 20, 2016 16:37 Bhakti Carranza MD Oct 20, 2016 17:33
[2016-10-20] MEDS ORDERED: ENALAPRILAT 1.25 MG/ML VIAL IV PRN (17:15)
[2016-10-20 17:22] LABS: INTERNATIONAL NORMALIZED RATIO 1.3 RATIO; PROTHROMBIN TIME - PATIENT 14.2 SEC (9.8-11.6)
[2016-10-20] MEDS: cefTRIAXone INJ 2,000 MG in SODIUM CHLORIDE 0.9% INJ 100 ML IV SCH (17:24)
[2016-10-20] MEDS: glipiZIDE 10 MG TAB PO SCH (17:24)
[2016-10-20] MEDS: WARFARIN SOD 7.5 MG TAB PO SCH (17:24)
[2016-10-20] MEDS: DOXYCYCLINE INJ 100 MG in SODIUM CHLORIDE 0.9% INJ 100 ML IV SCH (17:25)
[2016-10-20] MEDS: PRAVASTATIN SOD 80 MG TAB PO SCH (21:02)
[2016-10-21] VITALS (9 sets, daily range): BP systolic 134–156; BP diastolic 70–92; PULSE 60–62; RESP 18–24; TEMP 95.4–98.6; O2SAT 92–96
[2016-10-21] MEDS: methylPREDNISolone SOD SUCC 125 MG/2 ML VIAL IV PUSH SCH (00:02)
[2016-10-21] MEDS: RESP: ALBUTEROL 2.5 MG/IPRATROPIUM 0.5 MG NEB (SCH) INH ×7 (03:50→23:09)
[2016-10-21] MEDS: DOXYCYCLINE INJ 100 MG in SODIUM CHLORIDE 0.9% INJ 100 ML IV SCH (03:57)
[2016-10-21] MEDS: INSULIN ASPART SUPPLEMENTAL SCALE SQ SCH ×4 (06:05→21:00)
[2016-10-21] MEDS: glipiZIDE 10 MG TAB PO SCH ×2 (06:05→17:40)
[2016-10-21] MEDS: HEPARIN SODIUM - SQ 10,000 UNITS/ML VIAL SQ SCH ×3 (06:06→22:46)
[2016-10-21] MEDS: SODIUM CHLOR 0.9% 1000 ML INJ 1,000 ML IV SCH (06:08)
--- NOTE | 2016-10-21 07:32 | EKG ---
Date Performed: 10/19/2016 Time Performed: 13:04:26 PTAGE: 60 years EKG: Ventricular pacing Pacemaker rhythm - no further analysis Abnormal ECG NO PREVIOUS TRACING DOCTOR: Anand Dailey Interpretating Date/Time 10/21/2016 07:30:59
[2016-10-21] MEDS: SPIRONOLACTONE 25 MG TAB PO SCH (08:18)
[2016-10-21] MEDS: CALCIUM/VITAMIN D 250 MG/125 U TAB PO SCH ×2 (08:18→22:46)
[2016-10-21] MEDS: CARVEDILOL 6.25 MG TAB PO SCH ×2 (08:19→22:46)
[2016-10-21] MEDS: buPROPion HCL 100 MG TAB PO SCH ×2 (08:19→22:45)
[2016-10-21] MEDS: LISINOPRIL 5 MG TAB PO SCH (08:19)
[2016-10-21] MEDS: DULoxetine HCl DR 60 MG CAP PO SCH (08:19)
[2016-10-21] MEDS: PANTOPRAZOLE SOD 20 MG DELAYED RELEASE TAB PO SCH (08:19)
[2016-10-21] MEDS: SODIUM CHLORIDE 0.9% FLUSH 5 ML FLUSH FLUSH SCH ×2 (08:20→22:53)
[2016-10-21] MEDS: DOCUSATE SODIUM 100 MG CAP PO SCH ×2 (08:20→22:45)
[2016-10-21 08:25] LABS: INTERNATIONAL NORMALIZED RATIO 1.2 RATIO; PROTHROMBIN TIME - PATIENT 13.8 SEC (9.8-11.6)
[2016-10-21] MEDS ORDERED: DEXTROSE 50% IN WATER 50 ML VIAL(D50) IV PUSH PRN (14:15)
[2016-10-21] MEDS ORDERED: GLUCAGON 1 MG/ML VIAL OTHER PRN (14:15)
[2016-10-21] MEDS ORDERED: TEMAZEPAM 15 MG CAP PO PRN (14:15)
--- NOTE | 2016-10-21 14:20 | HHI.PR ---
Subjective Remarks Follow-up community-acquired pneumonia/COPD exacerbation 10/21/16-patient seen and examined, continue to have shortness of breath and positive for wheezing. Currently afebrile and denies any chest pain. Heart rate 60 and up. Objective Vitals Vital Signs Date Time Temp Pulse Resp B/P Pulse Ox O2 Delivery O2 Flow Rate FiO2 10/21/16 12:00 98.6 60 20 153/85 95 10/21/16 08:37 92 21 10/21/16 08:00 97.3 60 24 156/86 94 10/21/16 07:00 Room Air 10/21/16 04:00 96.4 60 19 155/92 96 10/21/16 00:00 95.4 60 18 134/70 96 10/20/16 21:21 2.00 10/20/16 20:01 60 10/20/16 20:00 97.4 60 18 154/85 95 10/20/16 19:00 Room Air 10/20/16 17:55 60 140/84 10/20/16 16:00 97.6 60 20 153/88 90 I/O 10/20/16 10/20/16 10/20/16 10/21/16 10/21/16 10/21/16 07:00 15:00 23:00 07:00 15:00 23:00 Intake Total 360 ml 840 ml 605 ml 786 ml Balance 360 ml 840 ml 605 ml 786 ml Intake Oral 360 ml 840 ml 120 ml IV Total 605 ml 666 ml # Voids 5 2 3 # Bowel Movements 0 0 Result Diagram: 10/20/16 0809 10/20/16 [address] Angiography 10/19/16 1337 Signed Impressions: Service Date/Time: Wednesday, October 19, 2016 14:16 - CONCLUSION: 1. No pulmonary embolus. 2. Areas of consolidation which are somewhat ground glass throughout the lungs as described above. This could represent widespread processes such as edema or infection or inflammatory change, including inhalational diseases. The patient does have adenopathy. Clinical correlation and close clinical followup would be recommended. Austin Florez MD Chest X-Ray 10/19/16 1247 Signed Impressions: Service Date/Time: Wednesday, October 19, 2016 13:09 - CONCLUSION: 1. Right lower lobe consolidation or atelectasis. 2. Cardiomegaly. The patient has a multilead pacing device in place. Austin Florez MD Objective Remarks GENERAL: NAD SKIN: Warm and dry. HEAD: Normocephalic. EYES: No scleral icterus. No injection or drainage. NECK: Supple, trachea midline. No JVD or lymphadenopathy. CARDIOVASCULAR: Irregular Regular rate and rhythm without murmurs, gallops, or rubs. RESPIRATORY: Breath sounds equal bilaterally. No accessory muscle use. Expiratory wheeze bilaterally GASTROINTESTINAL: Abdomen soft, non-tender, nondistended. MUSCULOSKELETAL: No cyanosis, or edema. BACK: Nontender without obvious deformity. No CVA tenderness. A/P Problem List: (1) Community acquired pneumonia ICD Code: J18.9 Status: Acute (2) COPD with exacerbation ICD Code: J44.1 Status: Acute (3) Diabetes mellitus, type 2 ICD Code: E11.9 Status: Acute Assessment and Plan 60-year-old female with 9-Ngdfzsihu-jezyndpw pneumonia: Currently on Rocephin 2 g IV and doxycycline, however we will switch to Rocephin 1 g IV and starts azithromycin 500 mg IV and discontinue doxycycline. 2-COPD exacerbation: Starts Solu-Medrol 40 mg IV every 12, Spiriva, Symbicort, scheduled DuoNeb and when necessary maintain oxygen saturation above 92%. 3-History of atrial fibrillation: Continue current outpatient medications. Monitor INR/PT 4-Diabetes type 2: Labile blood glucose, switch to high insulin sliding scale and continue with oral hypoglycemic agents 5-Other chronic medical conditions: Continue outpatient medications 6-Acute renal failure: Resolved with IV fluid hydration which I will HLIV and monitor BUN and creatinine 7-DVT prophylaxis: Panfilo Sandoval MD Oct 21, 2016 14:20
[2016-10-21] MEDS: cefTRIAXone INJ 1,000 MG in SODIUM CHLORIDE 0.9% INJ 100 ML IV SCH (17:40)
[2016-10-21] MEDS: AZITHROMYCIN INJ 500 MG in SODIUM CHLOR 0.9% 250 ML INJ 250 ML IV SCH (17:40)
[2016-10-21] MEDS: WARFARIN SOD 7.5 MG TAB PO SCH (17:40)
--- NOTE | 2016-10-21 18:34 | EKG ---
Date Performed: 10/20/2016 Time Performed: 10:04:40 PTAGE: 60 years EKG: Atrial fibrillation with PVC(s) or aberrant ventricular conduction. --- Suggests dextrocard ia --- The ventricular rhythm appears to be paced with underlying atrial Fibrillation. There appears to be appropriate pacing an sensing of the intrinsic Rhythm.. When compared to previous tracing, ther e has been no significant Serial change. Clinical correlation is suggested to assess the underlying a trial Fibrillation. Abnormal ECG PREVIOUS TRACING : 10/19/2016 13.04 DOCTOR: Jessica Ford Interpretating Date/Time 10/21/2016 18:33:56
[2016-10-21] MEDS ORDERED: BUDESONIDE-FORMOTEROL 160/4.5 MCG INHALER INH SCH (21:00)
[2016-10-21] MEDS: BUDESONIDE-FORMOTEROL 80/4.5 MCG INHALER INH SCH (22:44)
[2016-10-21] MEDS: methylPREDNISolone SOD SUCC 40 MG/1 ML VIAL IV PUSH SCH (22:46)
[2016-10-21] MEDS: PRAVASTATIN SOD 80 MG TAB PO SCH (22:53)
[2016-10-22] VITALS (10 sets, daily range): BP systolic 110–156; BP diastolic 68–92; PULSE 60; RESP 18–20; TEMP 95.6–97.8; O2SAT 93–96
[2016-10-22] MEDS: RESP: ALBUTEROL 2.5 MG/IPRATROPIUM 0.5 MG NEB (SCH) INH ×6 (03:14→23:21)
[2016-10-22] MEDS: HEPARIN SODIUM - SQ 10,000 UNITS/ML VIAL SQ SCH ×3 (04:54→20:34)
[2016-10-22] MEDS: glipiZIDE 10 MG TAB PO SCH ×2 (04:54→09:06)
[2016-10-22] MEDS: INSULIN ASPART SUPPLEMENTAL SCALE SQ SCH ×4 (05:06→21:00)
[2016-10-22 06:14] LABS: AUTOMATED NEUTROPHIL # 10.2 TH/MM3 (1.8-7.7); BASOPHIL % 0.1 % (0.0-2.0); EOSINOPHIL % 0.1 % (0.0-4.0); HEMATOCRIT 33.5 % (35.0-46.0); LYMPHOCYTE # 1.2 TH/MM3 (1.0-4.8); MEAN CELL VOLUME 89.2 FL (80.0-100.0); MEAN CORPUSCULAR HEMOGLOBIN 29.4 PG (27.0-34.0); MEAN CORPUSCULAR HGB CONC 32.9 % (32.0-36.0); MONO % 3.8 % (0.0-8.0); PLATELET COUNT 217 TH/MM3 (150-450); RED BLOOD COUNT 3.75 MIL/MM3 (4.00-5.30); RED CELL DISTRIBUTION WIDTH 12.7 % (11.6-17.2); WHITE BLOOD COUNT 11.8 TH/MM3 (4.0-11.0)
[2016-10-22 06:17] LABS: INTERNATIONAL NORMALIZED RATIO 1.3 RATIO; PROTHROMBIN TIME - PATIENT 14.9 SEC (9.8-11.6)
[2016-10-22 06:23] LABS: BICARBONATE 24.9 MEQ/L (21.0-32.0)
[2016-10-22 06:33] LABS: HEMO FLAGS DIFF FINAL
--- NOTE | 2016-10-22 08:56 | HHI.PR ---
Subjective Remarks Follow-up community-acquired pneumonia/COPD exacerbation 10/21/16-patient seen and examined, continue to have shortness of breath and positive for wheezing. Currently afebrile and denies any chest pain. Heart rate 60 and up. 10/22/16-patient seen and examined, reports significant improvement or shortness of breath however state wheezing. No other issues. Reported good appetite. Objective Vitals Vital Signs Date Time Temp Pulse Resp B/P Pulse Ox O2 Delivery O2 Flow Rate FiO2 10/22/16 08:23 97.8 60 18 140/91 93 10/22/16 07:43 96 Nasal Cannula 2.00 10/22/16 04:51 97.1 60 20 110/68 96 10/22/16 00:00 97.6 60 18 139/79 95 10/21/16 21:00 60 10/21/16 20:00 98.0 60 20 139/83 95 10/21/16 19:55 95 Nasal Cannula 2.00 10/21/16 16:00 98.0 62 20 149/82 94 10/21/16 12:00 98.6 60 20 153/85 95 I/O 10/21/16 10/21/16 10/21/16 10/22/16 10/22/16 10/22/16 07:00 15:00 23:00 07:00 15:00 23:00 Intake Total 786 ml 720 ml 520 ml 1720 ml Balance 786 ml 720 ml 520 ml 1720 ml Intake Oral 120 ml 720 ml 520 ml 120 ml IV Total 666 ml 1600 ml # Voids 3 3 2 # Bowel Movements 0 0 Result Diagram: 10/22/16 0521 10/22/16 05 Objective Remarks GENERAL: NAD SKIN: Warm and dry. HEAD: Normocephalic. EYES: No scleral icterus. No injection or drainage. NECK: Supple, trachea midline. No JVD or lymphadenopathy. CARDIOVASCULAR: Irregular Regular rate and rhythm without murmurs, gallops, or rubs. RESPIRATORY: Breath sounds equal bilaterally. No accessory muscle use. Expiratory wheeze bilaterally GASTROINTESTINAL: Abdomen soft, non-tender, nondistended. MUSCULOSKELETAL: No cyanosis, or edema. BACK: Nontender without obvious deformity. No CVA tenderness. A/P Problem List: (1) Community acquired pneumonia ICD Code: J18.9 Status: Acute (2) COPD with exacerbation ICD Code: J44.1 Status: Acute (3) Diabetes mellitus, type 2 ICD Code: E11.9 Status: Acute Assessment and Plan 60-year-old female with 1-Gshsyeyga-scbahgjv pneumonia: Currently on Rocephin 1 g IV and azithromycin 500 mg IV 2-COPD exacerbation: Continue Solu-Medrol 40 mg IV every 12, Spiriva, Symbicort , scheduled DuoNeb and when necessary maintain oxygen saturation above 92%. 3-History of atrial fibrillation: Continue current outpatient medications. Monitor INR/PT 4-Diabetes type 2: Continue high insulin sliding scale and oral hypoglycemic agents 5-Other chronic medical conditions: Continue outpatient medications 6-Acute renal failure: Resolved ; monitor BUN and creatinine 7-DVT prophylaxis: Heparin Panfilo Oh MD Oct 22, 2016 08:56
[2016-10-22] MEDS: SODIUM CHLORIDE 0.9% FLUSH 5 ML FLUSH FLUSH SCH ×2 (09:00→20:34)
[2016-10-22] MEDS: PANTOPRAZOLE SOD 20 MG DELAYED RELEASE TAB PO SCH (09:00)
[2016-10-22] MEDS: LISINOPRIL 5 MG TAB PO SCH (09:06)
[2016-10-22] MEDS: buPROPion HCL 100 MG TAB PO SCH ×2 (09:06→20:33)
[2016-10-22] MEDS: SPIRONOLACTONE 25 MG TAB PO SCH (09:06)
[2016-10-22] MEDS: CARVEDILOL 6.25 MG TAB PO SCH ×2 (09:06→20:33)
[2016-10-22] MEDS: CALCIUM/VITAMIN D 250 MG/125 U TAB PO SCH ×2 (09:06→20:33)
[2016-10-22] MEDS: DOCUSATE SODIUM 100 MG CAP PO SCH ×2 (09:07→20:33)
[2016-10-22] MEDS: TIOTROPIUM BROMIDE 18 MCG INH INH SCH (09:07)
[2016-10-22] MEDS: BUDESONIDE-FORMOTEROL 80/4.5 MCG INHALER INH SCH ×2 (09:07→20:32)
[2016-10-22] MEDS: methylPREDNISolone SOD SUCC 40 MG/1 ML VIAL IV PUSH SCH ×2 (09:07→20:33)
[2016-10-22] MEDS: DULoxetine HCl DR 60 MG CAP PO SCH (09:07)
--- NOTE | 2016-10-22 09:54 | RADHPO ---
EXAM DATE/TIME: 10/22/2016 09:37 [place] COMPARISON: CHEST SINGLE AP, October 19, 2016, 13:09. INDICATIONS: Shortness of breath, Evaluate for pneumonia. MEDICAL HISTORY: Hypertension. Diabetes mellitus type II. A-Fib. SURGICAL HISTORY: CABG. Peripheral arterial bypass. Mitral valve repair. Defibrillator. ENCOUNTER: Subsequent ACUITY: 3 days PAIN SCORE: 0/10 LOCATION: Bilateral chest FINDINGS: Patient has a multi-lead pacing device in place from the left subclavian approach. The heart size is mildly enlarged. The lungs demonstrate diffuse mixed interstitial and alveolar consolidation. The costophrenic angles appear clear. CONCLUSION: Mild cardiomegaly with increased parenchymal markings likely representing pulmonary edema and CHF. W hen compared to the prior exam there has been little change. Austin Florez MD on October 22, 2016 at 9:45 Board Certified Radiologist. This report was verified electronically.
[2016-10-22] MEDS: WARFARIN SOD 7.5 MG TAB PO SCH (17:34)
[2016-10-22] MEDS: cefTRIAXone INJ 1,000 MG in SODIUM CHLORIDE 0.9% INJ 100 ML IV SCH (17:34)
[2016-10-22] MEDS: AZITHROMYCIN INJ 500 MG in SODIUM CHLOR 0.9% 250 ML INJ 250 ML IV SCH (17:34)
[2016-10-22] MEDS: PRAVASTATIN SOD 80 MG TAB PO SCH (20:33)
--- NOTE | 2016-10-22 22:10 | MB ---
cc: Renato KAMINSKI M.D. DATE OF CONSULTATION 10/22/16 REASON FOR CONSULTATION Respiratory distress with hemoptysis and bronchitis. HISTORY OF PRESENT ILLNESS This is a 60-year-old white female who has had a prior history of diabetes mellitus, chronic obstructive pulmonary disease, history of atrial fibrillation and permanent pacemaker placement who has been admitted with complaints of cough, chest congestion and mild hemoptysis for 3-4 days. The patient does have a history for hypertension and atrial fibrillation and has been on Coumadin. She has previously been treated for breast cancer with radiation and upon admission a chest CT angiography was done which showed no pulmonary emboli but had areas of ground-glass opacity which could represent edema and/or interstitial disease. The patient also complains of wheezing. She has trouble laying flat. PAST MEDICAL HISTORY 1. Hypertension as mentioned above 2. Diabetes mellitus type 2, 3. History of dyslipidemia 4. Depression, 5. History of coronary artery disease 6. Has had a history for surgery on her mitral valve as well as what appears to be repair of ASD 7. History of breast cancer with radiation after lumpectomy 8. Permanent pacemaker placed. MEDICATIONS 1. Fluoxetine 60 mg daily 2. Fish oil 3. Simvastatin 40 mg daily hs 4. Glipizide 10 mg b.i.d., 5. Coreg 6.25 mg b.i.d., 6. Aldactone 12.5 mg daily 7. Coumadin 7.5 mg daily, 8. Omeprazole 20 mg daily. HABITS The patient denies significant history of smoking presently, but did smoke for about 20 years in the past about half to one-pack per day. Alcohol use none. FAMILY HISTORY Noncontributory REVIEW OF SYSTEMS The patient is overweight. She has a history of sinus drainage, wheezing and snoring. She has epigastric distress and reflux. She has no urinary symptoms. No leg or calf muscle pains. She does have some varicose veins and joint pains of her extremities and anxiety with depression. ALLERGIES SULFA DRUGS PHYSICAL EXAMINATION GENERAL: This moderately obese middle-aged lady who is alert, mildly dyspneic at rest. VITAL SIGNS: Blood pressure 130/70, pulse is 62, respirations 18, temperature 98.5. HEENT: Head normocephalic. Pupils reactive and equal. Tongue moist. Throat was clear. Nasal mucosa injected. NECK: Supple. No bruits or thyroid enlargement or lymphadenopathy. CHEST: Equal movements, inspiratory and expiratory wheezes with scattered bilaterally prolonged expirations. HEART: The heart sounds are regular S1-S2. No murmur. No S3. ABDOMEN: Soft, protuberant without masses, no organomegaly or tenderness. Bowel sounds are active. EXTREMITIES: Mild varicosities and minimal edema. Decreased reflexes. Cranial nerves grossly intact. SKIN: Warm and dry. IMPRESSION 1. Basilar pneumonia with hypoxemia. 2. Reactive airways disease 3. Probable mild interstitial lung disease 4. Pulmonary edema. 5. Hypertension 6. Diabetes mellitus type 2 7. Chronic atrial fibrillation. PLAN The patient has been started on antibiotic coverage including Zithromax 500 mg and Rocephin 1 gram IV daily which we will continue. Solu-Medrol 40 mg every 12 hours has been added and Symbicort 160/4.5 two puffs twice a day. Chest x-ray will be repeated in the a.m. Nebulized DuoNeb solution added q.i.d. and we could add a small dose of Lasix 20 mg a day. Pulmonary function study will be done at the bedside and if she is clinically stable, she will be weaned off the oxygen over the next 24 hours. Continue with Coumadin to maintain INRs about two. Thank you, Dr. Oh, for this consultation. MD BAILEY Mercado/ /8:51 PM /9:51 PM
[2016-10-23] VITALS: BP 151/91; PULSE 60; RESP 18; TEMP 96; O2SAT 96
[2016-10-23] MEDS: RESP: ALBUTEROL 2.5 MG/IPRATROPIUM 0.5 MG NEB (SCH) INH ×2 (03:07→07:32)
[2016-10-23 04:00] VITALS: BP 146/82; PULSE 60; RESP 18; TEMP 95.6; O2SAT 99
[2016-10-23] MEDS: glipiZIDE 10 MG TAB PO SCH (05:34)
[2016-10-23] MEDS: HEPARIN SODIUM - SQ 10,000 UNITS/ML VIAL SQ SCH (05:34)
[2016-10-23] MEDS: INSULIN ASPART SUPPLEMENTAL SCALE SQ SCH (05:41)
[2016-10-23 06:37] LABS: POTASSIUM 3.9 MEQ/L (3.5-5.1)
[2016-10-23 06:40] LABS: BICARBONATE 25.6 MEQ/L (21.0-32.0); INTERNATIONAL NORMALIZED RATIO 1.6 RATIO; PROTHROMBIN TIME - PATIENT 18.5 SEC (9.8-11.6)
[2016-10-23 07:33] VITALS: O2SAT 96
[2016-10-23] MEDS: buPROPion HCL 100 MG TAB PO SCH (08:36)
[2016-10-23] MEDS: PANTOPRAZOLE SOD 20 MG DELAYED RELEASE TAB PO SCH (08:36)
[2016-10-23] MEDS: TIOTROPIUM BROMIDE 18 MCG INH INH SCH (08:36)
[2016-10-23] MEDS: DULoxetine HCl DR 60 MG CAP PO SCH (08:36)
[2016-10-23] MEDS: CARVEDILOL 6.25 MG TAB PO SCH (08:37)
[2016-10-23] MEDS: SPIRONOLACTONE 25 MG TAB PO SCH (08:37)
[2016-10-23] MEDS: CALCIUM/VITAMIN D 250 MG/125 U TAB PO SCH (08:37)
[2016-10-23] MEDS: DOCUSATE SODIUM 100 MG CAP PO SCH (08:37)
[2016-10-23] MEDS: LISINOPRIL 5 MG TAB PO SCH (08:38)
[2016-10-23] MEDS: SODIUM CHLORIDE 0.9% FLUSH 5 ML FLUSH FLUSH SCH (09:00)
[2016-10-23] MEDS ORDERED: FUROSEMIDE 20 MG TAB PO SCH (09:00)
[2016-10-23] MEDS: BUDESONIDE-FORMOTEROL 80/4.5 MCG INHALER INH SCH (09:00)
[2016-10-23] MEDS ORDERED: predniSONE 20 MG TAB PO SCH (09:00)
[2016-10-23] MEDS ORDERED: SYMB80AE INH (09:12)
[2016-10-23] MEDS ORDERED: SPIRCAP INH (09:12)
[2016-10-23] MEDS ORDERED: PRED20 PO (09:12)
[2016-10-23] MEDS ORDERED: IPRA17I INH (09:12)
[2016-10-23] MEDS ORDERED: AZIT250T3 PO (09:13)
[2016-10-23] MEDS ORDERED: POTA-163 PO (09:21)
[2016-10-23] MEDS ORDERED: FURO1TAB62 PO (09:21)
[2016-10-23 09:24] VITALS: BP 133/79; PULSE 60; RESP 18; TEMP 96.5; O2SAT 93
--- NOTE | 2016-10-23 09:24 | HHI.PR ---
Subjective Remarks Follow-up community-acquired pneumonia/COPD exacerbation 10/21/16-patient seen and examined, continue to have shortness of breath and positive for wheezing. Currently afebrile and denies any chest pain. Heart rate 60 and up. 10/22/16-patient seen and examined, reports significant improvement or shortness of breath however state wheezing. No other issues. Reported good appetite. 10/23/16-patient seen and examined; it was significant improvement of wheezing and shortness of breath. States she is ready for discharge home. Objective Vitals Vital Signs Date Time Temp Pulse Resp B/P Pulse Ox O2 Delivery O2 Flow Rate FiO2 10/23/16 04:00 95.6 60 18 146/82 99 10/23/16 00:00 96.0 60 18 151/91 96 10/22/16 22:00 60 10/22/16 20:00 96.1 60 18 150/88 96 10/22/16 19:40 94 21 10/22/16 17:01 95.6 60 18 156/90 93 10/22/16 12:18 96.7 60 18 151/92 94 10/22/16 11:50 95 21 I/O 10/22/16 10/22/16 10/22/16 10/23/16 10/23/16 10/23/16 07:00 15:00 23:00 07:00 15:00 23:00 Intake Total 1720 ml 860 ml 840 ml Balance 1720 ml 860 ml 840 ml Intake Oral 120 ml 860 ml 240 ml IV Total 1600 ml 600 ml # Voids 3 3 # Bowel Movements 1 0 Result Diagram: 10/22/16 0521 10/23/16 0545 Imaging Last Impressions Chest X-Ray 10/22/16 0600 Signed Impressions: Service Date/Time: Saturday, October 22, 2016 09:37 - CONCLUSION: Mild cardiomegaly with increased parenchymal markings likely representing pulmonary edema and CHF. When compared to the prior exam there has been little change. Austin Florez MD CT Angiography 10/19/16 3025 Signed Impressions: Service Date/Time: Wednesday, October 19, 2016 14:16 - CONCLUSION: 1. No pulmonary embolus. 2. Areas of consolidation which are somewhat ground glass throughout the lungs as described above. This could represent widespread processes such as edema or infection or inflammatory change, including inhalational diseases. The patient does have adenopathy. Clinical correlation and close clinical followup would be recommended. Austin Florez MD Objective Remarks GENERAL: NAD SKIN: Warm and dry. HEAD: Normocephalic. EYES: No scleral icterus. No injection or drainage. NECK: Supple, trachea midline. No JVD or lymphadenopathy. CARDIOVASCULAR: Irregular Regular rate and rhythm without murmurs, gallops, or rubs. RESPIRATORY: Breath sounds equal bilaterally. No accessory muscle use. Expiratory wheeze bilaterally GASTROINTESTINAL: Abdomen soft, non-tender, nondistended. MUSCULOSKELETAL: No cyanosis, or edema. BACK: Nontender without obvious deformity. No CVA tenderness. Procedures None A/P Problem List: (1) Community acquired pneumonia ICD Code: J18.9 Status: Acute (2) COPD with exacerbation ICD Code: J44.1 Status: Acute (3) Diabetes mellitus, type 2 ICD Code: E11.9 Status: Acute Assessment and Plan 60-year-old female with [id number] pneumonia: Currently on Rocephin 1 g IV and azithromycin 500 mg IV 2-COPD exacerbation: Improved with Solu-Medrol 40 mg IV every 12 which I will switch to by mouth prednisone 20 mg daily and continue Spiriva, Symbicort, scheduled DuoNeb and when necessary maintain oxygen saturation above 92%. Repeat chest x-ray with some evidence of pulmonary edema for which patient will be on Lasix for short course duration. 3-History of atrial fibrillation: Continue current outpatient medications. Monitor INR/PT 4-Diabetes type 2: Continue high insulin sliding scale and oral hypoglycemic agents 5-Other chronic medical conditions: Continue outpatient medications 6-Acute renal failure: Resolved ; monitor BUN and creatinine 7-DVT prophylaxis: Heparin Panfilo Oh MD Oct 23, 2016 09:24
--- NOTE | 2016-10-23 09:26 | HHI.DS ---
Discharge Summary Admission Date Oct 19, 2016 at 15:33 Discharge Date: Oct 23, 2016 Admitting Diagnosis Multilobar pneumonia, COPD exacerbation (1) Community acquired pneumonia ICD Code: J18.9 (2) COPD with exacerbation ICD Code: J44.1 (3) Diabetes mellitus, type 2 ICD Code: E11.9 Procedures None Brief History - From Admission This is a 60-year-old female with multiple medical problems including atrial fibrillation, previous pacemaker placement, COPD, diabetes, hypertension and history of breast cancer status post radiation who presents to [facility] ED with complaints of chest heaviness, cough and congestion 4 days. Patient reports she's been in her usual state of health until 4 days ago when she developed chest heaviness followed by cough with thick sputum production, hemoptysis and SOB. She reports associated unrecorded fever and chills. She denies any muscle aches or pains. She denies any abdominal pain, nausea or vomiting. Patient went to urgent care earlier today and was told she has pneumonia. She was treated with a cephalosporin and albuterol treatment and was then sent to the ED due to hemoptysis. She denies any ill contacts or recent travel. She denies any previous history of tuberculosis. In the ED, patient's white count is normal with 73 polys. She is afebrile. Chest x-ray shows cardiomegaly and right lower lobe consolidation. CTA revealed no evidence of PE but showed patchy areas of consolidation in all lobes of the right lung and some patchy consolidation noted in the left lobe as well. CBC/BMP: 10/22/16 0521 10/23/16 0545 Significant Findings Laboratory Tests Test 10/20/16 10/21/16 10/22/16 10/23/16 16:59 07:33 05:21 05:45 Prothrombin Time 14.2 SEC 13.8 SEC 14.9 SEC 18.5 SEC (9.8-11.6) (9.8-11.6) (9.8-11.6) (9.8-11.6) White Blood Count 11.8 TH/MM3 (4.0-11.0) Red Blood Count 3.75 MIL/MM3 (4.00-5.30) Hemoglobin 11.0 GM/DL (11.6-15.3) Hematocrit 33.5 % (35.0-46.0) Neutrophils (%) (Auto) 86.0 % (16.0-70.0) Neutrophils # (Auto) 10.2 TH/MM3 (1.8-7.7) Blood Urea Nitrogen 29 MG/DL (7-18) 27 MG/DL (7-18) Estimat Glomerular Filtration 57 ML/MIN (>89) 58 ML/MIN (>89) Rate Random Glucose 184 MG/DL 235 MG/DL (74-106) (74-106) Imaging Last Impressions Chest X-Ray 10/22/16 0600 Signed Impressions: Service Date/Time: Saturday, October 22, 2016 09:37 - CONCLUSION: Mild cardiomegaly with increased parenchymal markings likely representing pulmonary edema and CHF. When compared to the prior exam there has been little change. Austin Florez MD CT Angiography 10/19/16 1337 Signed Impressions: Service Date/Time: Wednesday, October 19, 2016 14:16 - CONCLUSION: 1. No pulmonary embolus. 2. Areas of consolidation which are somewhat ground glass throughout the lungs as described above. This could represent widespread processes such as edema or infection or inflammatory change, including inhalational diseases. The patient does have adenopathy. Clinical correlation and close clinical followup would be recommended. Austin Florez MD PE at Discharge GENERAL: NAD SKIN: Warm and dry. HEAD: Normocephalic. EYES: No scleral icterus. No injection or drainage. NECK: Supple, trachea midline. No JVD or lymphadenopathy. CARDIOVASCULAR: Irregular Regular rate and rhythm without murmurs, gallops, or rubs. RESPIRATORY: Breath sounds equal bilaterally. No accessory muscle use. Expiratory wheeze bilaterally GASTROINTESTINAL: Abdomen soft, non-tender, nondistended. MUSCULOSKELETAL: No cyanosis, or edema. BACK: Nontender without obvious deformity. No CVA tenderness. Hospital Course She was admitted and diagnosed with community acquired pneumonia for which she was started on IV antibiotics. She was also treated for COPD exacerbation with steroid, long-acting beta agonist as well as scheduled and when necessary DuoNeb with consultation to pulmonary medicine. She was given a short course of Lasix secondary to pulmonary conditions finding on chest x-ray. Patient conditions improved prior to discharge. She was continued on her treatment for other chronic medical conditions. Insulin sliding scale was initiated. DVT and GI prophylaxis were provided. All electrolyte abnormalities were corrected accordingly. Vital remained stable prior to discharge. Pt Condition on Discharge: Stable Discharge Disposition: Discharge Home Discharge Time: <= 30 minutes Discharge Instructions DIET: Follow Instructions for: Diabetic Diet Activities you can perform: Regular-No Restrictions Follow up Referrals: PCP Follow-up - 1 Week New Medications: Azithromycin (Azithromycin) 250 Mg Tab 250 MG PO DAILY Infection #4 Ref 0 TAB Furosemide (Lasix) 20 Mg Tab 20 MG PO DAILY Prevent Heart Failure #10 Ref 0 TAB Ipratropium HFA 12.9 GM Inh (Atrovent HFA 12.9 GM Inh) 17 Mcg/Act Aer 2 PUFF INH QID Breathing Treatment #1 Ref 0 INHALER Potassium Chloride ER (Potassium Chloride ER) 20 Meq Tab 20 MEQ PO DAILY Electrolyte Replacement #10 Ref 0 TAB Budesonide-Formoterol Inh (Symbicort Inh) 80-4.5 Mcg/Act Aero 2 PUFF INH Q12HR Breathing Treatment #60 INHALER Prednisone (Prednisone) 20 Mg Tab 20 MG PO DAILY Breathing Treatment #7 TAB Tiotropium Inh (Spiriva Handihaler) 18 Mcg Cap 18 MCG INH DAILY Breathing Treatment #1 Ref 3 CAP Continued Medications: Bupropion HCl (Bupropion HCl) 100 Mg Tab 100 MG PO BID Control Depression Ref 0 TAB Calcium Carbonate-Cholecalciferol (Calcium + D3) 600-200 Mg-Unit Tab 1 TAB PO BID TAB Carvedilol (Carvedilol) 6.25 Mg Tab 6.25 MG PO BID #60 Ref [address] (Dul[address]etine [address]) 60 Mg Capdr 60 MG PO DAILY #30 Ref 0 CAP Glipizide (Glipizide) 10 Mg Tab 10 MG PO BIDAC Take 30 minutes before a meal Blood Sugar Management #60 Ref 0 TAB Lisinopril (Lisinopril) 2.5 Mg Tab 2.5 MG PO DAILY #30 Ref 0 TAB [place]-3 Fatty Acids (Fish Oil) 1,200 Mg Cap Omeprazole (Omeprazole) 20 Mg Tab 20 MG PO DAILY #30 Ref 0 TAB Simvastatin (Simvastatin) 40 Mg Tab 40 MG PO HS Cholesterol Management #30 Ref 0 TAB Spironolactone (Spironolactone) 25 Mg Tab 12.5 MG PO DAILY #15 Ref 0 TAB Warfarin (Warfarin) 7.5 Mg Tab 7.5 MG PO DAILY Blood Clot Prevention #30 Ref 0 TAB Panfilo Oh MD Oct 23, 2016 09:26
[2016-10-23] MEDS ORDERED: FUROSEMIDE 20 MG/2 ML VIAL IV PUSH ONE (09:30)
== END 2016-10-23 10:34 | disposition home or self-care (01) | DRG 190 ==
LOC: PHED 12:24 → PHEDA 15:33 → PH3B 20:18
PROVIDERS: ADMIT Hospitalist; ATTEND Hospitalist
DX: J44.0 Chronic obstructive pulmonary disease with (acute) lower respiratory infection (principal); J18.1 Lobar pneumonia, unspecified organism; N17.9 Acute kidney failure, unspecified; I11.0 Hypertensive heart disease with heart failure; I50.9 Heart failure, unspecified; R04.2 Hemoptysis; I48.2 Chronic atrial fibrillation; J44.1 Chronic obstructive pulmonary disease with (acute) exacerbation; E11.9 Type 2 diabetes mellitus without complications; R09.02 Hypoxemia; R00.1 Bradycardia, unspecified; I25.10 Atherosclerotic heart disease of native coronary artery without angina pectoris; E78.5 Hyperlipidemia, unspecified; K21.9 Gastro-esophageal reflux disease without esophagitis; F32.9 Major depressive disorder, single episode, unspecified; Z79.01 Long term (current) use of anticoagulants; Z95.0 Presence of cardiac pacemaker; Z88.2 Allergy status to sulfonamides; Z79.4 Long term (current) use of insulin; Z87.891 Personal history of nicotine dependence; Z92.3 Personal history of irradiation; Z85.3 Personal history of malignant neoplasm of breast
CPT/HCPCS: 36600; 71010; 71275; 76937; 80048; 80053; 81001; 82805; 82948; 85025; 85610; 85730; 87040; 87070; 87205; 87449; 87556; 87798; 87804; 93005; 93306; 94640; 94664; 94667; 94668; 96374; J0456; J0696; J1644; J1815; J1940; J2920; J2930; J7030; J7050; J7512; J7613; Q9967